=== PATIENT | male | born 1990 ===

== ENCOUNTER 2023-03-20 19:15 | Emergency (ER) | payer SELFPAY ==
[2023-03-20] MEDS ORDERED: Lidocaine 2% with EPINEPHrine 1:100,000 20 ML MDV INJECT ONE (19:26)
[2023-03-20] MEDS ORDERED: Diphtheria,Pertussis(Acell),Tetanus Vaccine 0.5 ML Syringe IM ONE (19:28)
[2023-03-20] MEDS ORDERED: Bacitracin Oint 1 GM U/D Packet TOP ONE (20:11)
== END 2023-03-20 20:30 | disposition home or self-care (01) ==
LOC: LL.ED 19:15
DX: S61.411A Laceration without foreign body of right hand, initial encounter (principal)
CPT/HCPCS: 12002; 90471; 90715; 99282-25; 99283; J3490